=== PATIENT | male | born 1940 | race Caucasian/White ===

== ENCOUNTER 2022-04-16 09:01 | Emergency (ER) | payer MEDICARE, BC, SELFPAY ==
[2022-04-16 09:15] VITALS: BP 145/73; PULSE 60; O2SAT 96
[2022-04-16 09:17] VITALS: BP 145/73; PULSE 57; RESP 18; TEMP 36.6; O2SAT 97; BMI 248.7
[2022-04-16 09:30] VITALS: BP 132/102; PULSE 58; RESP 17; O2SAT 95
[2022-04-16 10:00] VITALS: BP 115/62; PULSE 57; RESP 20; O2SAT 97
--- NOTE | 2022-04-16 10:17 | CRLHL7_ITS ---
For Patients: As a result of the Century Cures Act, medical imaging exams and procedure reports are released immediately into your electronic medical record. You may view this report before your referring provider. If you have questions, please contact your health care provider. Indication: Vertigo Technique: CT of the head without contrast. Coronal and sagittal reformats. Bone and soft tissue windows. Comparison: No prior studies available for comparison at this institution. Findings: No acute intracranial hemorrhage or extra-axial collection. No evidence of acute cortical infarction. No mass effect or midline shift. Normal cerebral volume. The ventricles are normal in size, shape and contour for age. There is normal lewis and white matter differentiation. The orbital contents are normal. No calvarial fractures. No lytic or sclerotic osseous lesions within the calvarium or skull base. Scalp and other imaged soft tissue structures are normal. Mastoid air cells are clear. Paranasal sinuses are well aerated. Impression: No acute intracranial abnormality. Please note that all CT scans at this facility use dose modulation, iterative reconstruction, and/or weight-based dosing when appropriate to reduce radiation dose to as low as reasonably achievable. Dictated by Sukhwinder Michel MD @ 04/16/2022 10:46:09 AM (Electronically Signed)
--- NOTE | 2022-04-16 10:20 | ED.DIZZY ---
HPI - Dizziness General Chief Complaint: Dizziness/Vertigo Stated Complaint: DIZZY,BLURRY VISION,HEADACHE Time Seen by Provider: 04/16/22 10:09 History of Present Illness HPI Narrative: This 81-year-old male reports dizziness that began last night and again this morning. He clarifies it to state that he feels off balance and has some vertigo symptoms. He does have a mild headache also. He does not report any nausea or vomiting. He has not had any speech change or weakness. He states that his symptoms are completely gone when remaining still but reproducible with movement or when upright and walking. Related Data Home Medications Medication Instructions Recorded Confirmed latanoprost 0.005 % eye drops drp 04/16/22 levothyroxine 137 mcg tablet mcg 04/16/22 losartan 100 tab 04/16/22 mg-hydrochlorothiazide 25 mg tablet propranolol 20 mg tablet mg 04/16/22 simvastatin 40 mg tablet mg 04/16/22 topiramate 50 mg tablet mg 04/16/22 Previous Rx's Medication Instructions Recorded meclizine 25 mg tablet 25 mg PO QID #20 tabs 04/16/22 Allergies Allergy/AdvReac Type Severity Reaction Status Date / Time No Known Drug Allergies Allergy Verified 04/16/22 09:17 Review of Systems Status of ROS: Reports: 10 or more systems reviewed and unremarkable except as noted in History and below Narrative: Constitutional: No fevers, no weight gain or loss. Eyes: No discharge. No vision changes. HENT: No congestion, no sore throat, no ear pain. Cardiovascular: No chest pain, no palpitations. Respiratory: No shortness of breath, no wheezes, no cough. Gastrointestinal: No abdominal pain, no vomiting, no diarrhea. Genitourinary: No dysuria, no hematuria. Musculoskeletal: Normal range of motion. Skin: No rashes, no pruritis. Neurological: Vertigo symptoms as described above. No weakness. No speech change. He does report some tingling in his fingers. Endo/Heme/Allergies: No bruising or bleeding. No polydipsia. Pysch: no suicidality, no anxiety, no insomnia. All other systems reviewed and are negative. PFSH PFSH Social History Smoking Status: Former smoker Do you use any of these nicotine containing products: None Second hand tobacco smoke exposure: No How often do you have a drink containing alcohol: 4 or more times a week How many standard drinks containing alcohol do you have on a typical day: 1 or 2 How often do you have six or more drinks on one occasion: Never AUDIT-C Alcohol total score: 4 Non-prescribed substance use: denies use Exam Narrative: Exam Narrative: Constitutional: Well-developed, well-nourished, no acute distress. HEENT: Normocephalic, atraumatic. Neck: Normal range of motion. Nontender. Supple. Heart: Regular. No murmurs. Normal rate. Intact distal pulses. Lungs: Clear to auscultation. No chest discomfort. No wheezes, rhonchi, or rales. Abdomen: Normal bowel sounds. Nontender. No rebound tenderness. Genitalia: Deferred. Back: No midline tenderness. Normal range of motion. Extremities: Normal range of motion. No injury. Skin: Intact. No rash. Warm. No erythema or pallor. Neurologic: No weakness. Alert and oriented. No facial asymmetry. [employer] strength is equal bilaterally. Ocldge-el-zlks is normal. Heel to deluna is normal. No pronator drift. Psychiatric: No suicidality. No anxiety or depression. No insomnia. Nursing notes and vitals signs are reviewed. Const: Vital Signs, click to edit/add: Vital Signs - 24 hr 04/16/22 09:17 Temperature 97.8 F Pulse Rate [Right Pulse Oximeter] 57 L Respiratory Rate 18 Blood Pressure [Ri ght Upper Arm] 145/73 H Pulse Oximetry 97 Oxygen Delivery Me thod Room Air Course Vital Signs Vital signs: Initial Vital Signs Temperature 97.8 F 04/16/22 09:17 Temperature Source Temporal Artery Scan 04/16/22 09:17 Pulse Rate 57 L 04/16/22 09:17 Respiratory Rate 18 04/16/22 09:17 Blood Pressure 145/73 H 04/16/22 09:17 Blood Pressure Mean 97 04/16/22 09:17 Pulse Oximetry 97 04/16/22 09:17 Oxygen Delivery Method 04/16/22 09:17 Vital Signs Temperature 97.8 F 04/16/22 09:17 Pulse Rate 57 L 04/16/22 09:17 Respiratory Rate 18 04/16/22 09:17 Blood Pressure 145/73 H 04/16/22 09:17 Pulse Oximetry 97 04/16/22 09:17 Oxygen Delivery Method 04/16/22 09:17 Temperature 97.8 F 04/16/22 09:17 Pulse Rate 57 L 04/16/22 09:17 Respiratory Rate 18 04/16/22 09:17 Blood Pressure 145/73 H 04/16/22 09:17 Pulse Oximetry 97 04/16/22 09:17 Oxygen Delivery Method 04/16/22 09:17 MDM - Dizziness MDM Narrative Medical decision making narrative: This 81-year-old male comes in reporting symptoms of vertigo that came on rather suddenly last night and again this morning. His symptoms are absent when remaining still but reproduced somewhat now with movement. His neurologic exam is completely normal. Given his age I did do a workup including CT imaging of his head and lab results. These all returned with normal findings. This is not a central process for his vertigo. The patient was able to get up and ambulate. He did receive a tablet of meclizine. Lab Data Labs: Lab Results 04/16/22 04/16/22 Range/Units 09:30 09:30 WBC 7.42 (4.50-11.00) K/uL RBC 5.36 (4.30-5.90) m/uL Hgb 15.6 (13.5-17.5) gm/dL Hct 45.8 (37.0-53.0) % MCV 85 (80-100) fL MCH 29 (26-34) pg MCHC 34 (32-36) gm/dL RDW Coeff of Parveen 13.1 (11.5-15.5) % Plt Count 231 (140-440) K/uL Neut % (Auto) 73.8 H (42.0-72.0) % Lymph % (Auto) 15.9 L (20-44) % [place] % (Auto) 8.4 (0.0-11.0) % Eos % (Auto) 1.2 (0.0-7.0) % Baso % (Auto) 0.4 (0.0-3.0) % Neut # (Auto) 5.50 (1.7-7.0) K/uL Lymph # (Auto) 1.20 (0.90-2.90) K/uL [place] # (Auto) 0.60 (0.00-0.90) K/UL Eos # (Auto) 0.09 (0.00-0.50) K/uL Baso # (Auto) 0.03 (0.00-0.30) K/uL Abs Immat Gran (auto) 0.02 (0.00-0.30) K/uL Sodium 141 (135-149) mmol/L Potassium 3.7 (3.6-5.1) mmol/L Chloride 108 (96-114) mmol/L Carbon Dioxide 25 (20-32) mmol/L BUN 24 (7-30) mg/dL Creatinine 1.2 (0.5-1.5) mg/dL Estimated Creat Clear 59.66 Estimated GFR 62 ml/min Glucose 99 (60-115) mg/dL Calcium 9.1 (8.4-10.6) mg/dL Imaging Data CT scan - head: Radiologist's impression: No acute intracranial abnormality. ECG Data Attestation: I personally reviewed and interpreted this ECG as follows: Interpretation: Normal sinus rhythm. Rate is 60 beats per minute. There are no ST or T-wave abnormalities. Discharge Plan Discharge Clinical Impression: Acute vestibular neuronitis Patient Disposition: Home, Self-Care Condition: Improved Instructions: Vertigo (ED) Additional Instructions: Take medication as needed and indicated. Follow up with MD or return if worsening symptoms happen. Prescriptions: New meclizine 25 mg tablet 25 mg PO QID Qty: 20 0RF No Action latanoprost 0.005 % drops Label Comments: INSTILL 1 DROP IN BOTH EYES EVERY EVENING levothyroxine 137 mcg tablet Label Comments: TAKE 1 TABLET BY MOUTH EVERY DAY simvastatin 40 mg tablet Label Comments: TAKE 1 TABLET BY MOUTH EVERY NIGHT AT BEDTIME losartan-hydrochlorothiazide 100-25 mg tablet Label Comments: TAKE 1 TABLET BY MOUTH EVERY MORNING propranolol 20 mg tablet topiramate 50 mg tablet Follow Up/Referrals: Provider,Not a Local [Primary Care Provider] - Stand Alone Forms: [facility] Info Instructions
[2022-04-16] MEDS: MECLIZINE HCL 25 MG TABLET PO (10:27)
[2022-04-16 10:34] LABS: Basophils Absolute Auto 0.03 K/uL (0.00-0.30); Basophils Percent Auto 0.4 % (0.0-3.0); Eosinophils Absolute Auto 0.09 K/uL (0.00-0.50); Eosinophils Percent Auto 1.2 % (0.0-7.0); Hematocrit 45.8 % (37.0-53.0); Hemoglobin* 15.6 gm/dL (13.5-17.5); Immature Granulocytes Abs Auto 0.02 K/uL (0.00-0.30); Lymphocytes Percent Auto 15.9 % (20-44); Mean Corpuscular HGB Conc 34 gm/dL (32-36); Mean Corpuscular Hemoglobin 29 pg (26-34); Mean Corpuscular Volume 85 fL (80-100); Monocytes Percent Auto 8.4 % (0.0-11.0); Neutrophils Percent Auto 73.8 % (42.0-72.0); Platelet Count* 231 K/uL (140-440); RDW Coefficient of Variation % 13.1 % (11.5-15.5); Red Blood Count 5.36 m/uL (4.30-5.90); White Blood Count* 7.42 K/uL (4.50-11.00)
[2022-04-16 10:36] LABS: Slide Review Reflex No
[2022-04-16 10:43] LABS: Chloride* 108 mmol/L (96-114); Potassium* 3.7 mmol/L (3.6-5.1); Sodium* 141 mmol/L (135-149)
[2022-04-16 10:45] LABS: Creatinine* 1.2 mg/dL (0.5-1.5); Est. Creatinine Clearance* 59.66; Estimated Glomerular Filt Rate 62 ml/min
[2022-04-16 10:46] LABS: Blood Urea Nitrogen* 24 mg/dL (7-30); Calcium* 9.1 mg/dL (8.4-10.6); Carbon Dioxide* 25 mmol/L (20-32); Glucose* 99 mg/dL (60-115)
== END 2022-04-16 11:47 | disposition home or self-care (01) ==
PROVIDERS: Emergency Provider Emergency Medicine Emergency Medical Services
DX: H81.20 Vestibular neuronitis, unspecified ear (principal)
CPT/HCPCS: 36415; 70450; 80048; 85025; 93005; 99284; A9270

== ENCOUNTER 2022-05-11 09:37 | Outpatient (CLI) | payer MEDICARE, BC, SELFPAY | END 2022-05-11 09:38 | disposition home or self-care (01) | PROVIDERS: Physician Assistant; Visit Provider Internal Medicine | DX: C61 Malignant neoplasm of prostate (principal) | CPT/HCPCS: 36415; 84153 ==

== ENCOUNTER 2023-06-05 09:36 | Outpatient (CLI) | payer MEDICARE, BC, SELFPAY ==
[2023-06-05 11:07] LABS: PSA Diagnostic* 0.25 ng/mL (0.10-4.00)
== END 2023-06-05 09:37 | disposition home or self-care (01) ==
PROVIDERS: Visit Provider Internal Medicine
DX: C61 Malignant neoplasm of prostate (principal)
CPT/HCPCS: 36415; 84153

== ENCOUNTER 2024-07-17 20:40 | Observation (INO) | payer MEDICARE, BC, SELFPAY ==
[2024-07-17] VITALS (7 sets, daily range): BP systolic 111–178; BP diastolic 73–98; PULSE 60–73; RESP 18; TEMP 37.1; O2SAT 96–98; BMI 24.3
--- NOTE | 2024-07-17 21:00 | ED_ITS ---
HPI - General Adult General Date Seen: 07/17/24 Chief complaint: GI Bleed Stated complaint: blood in stool Time Seen by Provider: 07/17/24 20:57 History of Present Illness HPI narrative: 83-year-old gentleman with a history high cholesterol, hypothyroidism, hypert ension, atrial fibrillation and is on warfarin, prostate cancer, essential tremor, lumbar degenerative disc disease, presenting to the ER today with 3 episodes of bright red blood per rectum. The 1st episode happened around 6:00 p.m. tonight when he notice bright red blood in the toilet. About 20 minutes after that he had another stool with more blood. We do not have any old labs from here in the [facility] medical record. He did have an INR in the [facility] system on 06/03/24 that was 3.0 CBC 06/01/2024 showed a white count of 7.5, hemoglobin 13.6, platelet count 186. He had been hospitalized in May with symptoms of fever, headache and lab workup showed creatinine of 1.4 (up from baseline around 1.1). COVID negative. Chest x-ray normal. Head CT negative. Treated in the hospital with IV fluids for acute kidney injury. Creatinine came back down to 1.08 on 06/03. He has back been having some trouble over the past couple months with labile INR. Apparently had been low a few months ago and was a bit high at 3.0 few weeks ago. He is due for an INR check in the few days. He has not noted any recent unusual bleeding, bruising, or other symptoms. He is not feeling any palpitations or shortness of breath or chest pain or other symptoms of AFib. He has otherwise been healthy and well. He has not had any recent abdominal pain. No recent constipation or hard stools. No diarrhea. Urination has been normal. No abdominal pain today or fever. At about 6:00 p.m. tonight he felt the urge to have a bowel movements went to the bathroom. He was not really able to defecate any stool but did pass bright red blood per rectum. He was not able to quantify how much blood be does say that there was some blood in the toilet water in the toilet bowl and also some blood on the toilet paper. It sounds like this would more a equate 2 tbsp of blood, not cups our gowns. He did not have any rectal pain with passage of the blood. About 20 minutes later he passed another episode of bright red blood per rectum and finally told his about it. They came here to the ER. On the way here he did pass a little bit more bright red blood which was leaking from his rectum but was not fully due to defecation. He is not feeling lightheaded or weak or dizzy. He had a colonoscopy a few years ago that showed a few polyps that were removed. No other concerning findings. He has had radiation to his prostate some years ago but has never been diagnosed with radiation colitis. No history of inflammatory bowel disease. No recent travel or suspicious food intake. Related Data Home Medications ?Medication ?Instructions ?Recorded ?Confirmed latanoprost 0.005 % eye drops drp 04/16/22 levothyroxine 137 mcg tablet mcg 04/16/22 losartan 100 tab 04/16/22 mg-hydrochlorothiazide 25 mg tablet propranolol 20 mg tablet mg 04/16/22 simvastatin 40 mg tablet mg 04/16/22 topiramate 50 mg tablet mg 04/16/22 warfarin 2.5 mg tablet mg PO 07/17/24 Previous Rx's ?Medication ?Instructions ?Recorded meclizine 25 mg tablet 25 mg PO QID #20 tabs 04/16/22 Allergies Allergy/AdvReac Type Severity Reaction Status Date / Time lisinopril AdvReac Verified 07/17/24 20:52 [facility] Medical History Essential tremor ?G25.0 - Essential tremor (ICD-10) History of CVA (cerebrovascular accident) ?Z86.73 - Personal history of transient ischemic attack (TIA), and cerebral infarction without residual deficits (ICD-10) Right upper lobe pulmonary nodule ?R91.1 - Solitary pulmonary nodule (ICD-10) Lumbar radiculopathy ?M54.16 - Radiculopathy, lumbar region (ICD-10) Prostate cancer ?C61 - Malignant neoplasm of prostate (ICD-10) Glaucoma ?H40.9 - Unspecified glaucoma (ICD-10) Hyperkalemia ?E87.5 - Hyperkalemia (ICD-10) Hypothyroidism ?E03.9 - Hypothyroidism, unspecified (ICD-10) Hyperlipidemia ?E78.5 - Hyperlipidemia, unspecified (ICD-10) Renal infarct ?N28.0 - Ischemia and infarction of kidney (ICD-10) Atrial fibrillation ?I48.91 - Unspecified atrial fibrillation (ICD-10) Hypertension ?I10 - Essential (primary) hypertension (ICD-10) Social History What is your current living situation?: I presently have a place to live Problems where you live: no known problems Problems where you live details: n/a In the past 12 months, utilities in danger of being shut off: no In past 12 months, lack of transportation kept you from medical appts, meetings, work, or getting things needed for daily living: no In the past 12 mos, have been you worried that your food would run out before you had money to buy more?: never true In the past 12 mos, the food you bought just didn't last and you didn't have money to buy more?: never true Highest level of school completed/degree received: high school graduate Smoking Status: Former smoker Do you use any of these nicotine containing products: None Second hand tobacco smoke exposure: No How often do you have six or more drinks on one occasion: Never AUDIT-C Alcohol total score: 0 Non-prescribed substance use: denies use How often does anyone, including family, friends and others, physically hurt you : never How often does anyone, including family, friends and others, insult or talk down to you: never How often does anyone, including family, friends and others, threaten you with harm: never How often does anyone, including family, friends and others, scream or curse at you: never Exam Narrative: Exam Narrative: Constitutional: Appears well-developed and well-nourished. Alert. Conversant. Non toxic. HENT: Head: Atraumatic. Nose: Nose normal. Mouth/Throat: Oral mucosa is clear and moist. no trismus. Pharynx normal. Tonsils symmetric. No tonsillar enlargement, erythema, or exudate. Eyes: Conjunctivae normal. EOM normal. Pupils equal, round, and reactive to light. No scleral icterus. Neck: Normal range of motion. Neck supple. No tracheal deviation present. Cardiovascular: Normal rate, regular rhythm. No gallop. No friction rub. No murmur heard. Symmetric radial artery pulses Pulmonary/Chest: Effort normal. No stridor. No respiratory distress. No wheezes. No rales. No rhonchi . No tenderness. Abdominal: Soft. Bowel sounds normal. No distension. No mass. No tenderness. No rebound. No guarding. Rectal: He does have a small skin tag and a small external hemorrhoid without any signs of active bleeding that from those sites. No rectal fissures. Normal rectal tone. No palpable rectal masses. Musculoskeletal: RUE: Normal range of motion. No tenderness. No deformity LUE: Normal range of motion. No tenderness. No deformity RLE: Normal range of motion. No edema. No tenderness. No deformity LLE: Normal range of motion. No edema. No tenderness. No deformity Neurological: Alert and oriented to person, place, and time. Normal strength. CN II-VII intact. No sensory deficit. GCS eye subscore is 4. GCS verbal subscore is 5. GCS motor subscore is 6. Normal coordination Skin: Skin is warm and dry. No rash noted. No pallor. Normal capillary refill. Psychiatric: Normal mood. Normal affect. Const: Vital Signs, click to edit/add: Vital Signs - 24 hr 07/17/24 20:49 07/17/24 22:43 07/17/24 22:44 Temperature 98.8 F Pulse Rate 62 Pulse Rate [Pulse Oximeter] 73 Respiratory Rate 18 Blood Pressure 142/73 H Blood Pressure [Ri ght Upper Arm] 178/98 H Pulse Oximetry 98 97 97 Oxygen Delivery Me thod Room Air 07/17/24 22:44 07/17/24 22:45 07/17/24 23:00 Temperature Pulse Rate 61 61 60 Pulse Rate [Pulse Oximeter] Respiratory Rate Blood Pressure Blood Pressure [Ri ght Upper Arm] Pulse Oximetry 97 96 98 Oxygen Delivery Me thod 07/17/24 23:02 07/17/24 23:15 Temperature Pulse Rate 62 62 Pulse Rate [Pulse Oximeter] Respiratory Rate 18 Blood Pressure 111/82 Blood Pressure [Ri ght Upper Arm] Pulse Oximetry 97 96 Oxygen Delivery Me thod Room Air Course Vital Signs Vital signs: Initial Vital Signs Temperature 98.8 F 07/17/24 20:49 Temperature Source Temporal Artery Scan 07/17/24 20:49 Pulse Rate 73 07/17/24 20:49 Respiratory Rate 18 07/17/24 20:49 Blood Pressure 178/98 H 07/17/24 20:49 Blood Pressure Mean 124 H 07/17/24 20:49 Blood Pressure Position Sitting 07/17/24 20:49 Pulse Oximetry 98 07/17/24 20:49 Oxygen Delivery Method Room Air 07/17/24 20:49 Vital Signs Temperature 98.8 F 07/17/24 20:49 Pulse Rate 73 07/17/24 20:49 Respiratory Rate 18 07/17/24 20:49 Blood Pressure 178/98 H 07/17/24 20:49 Pulse Oximetry 98 07/17/24 20:49 Oxygen Delivery Method Room Air 07/17/24 20:49 Temperature 98.7 F 07/18/24 00:40 Pulse Rate 61 07/18/24 00:40 Respiratory Rate 16 07/18/24 00:40 Blood Pressure 149/79 H 07/18/24 00:40 Pulse Oximetry 96 07/18/24 00:40 Oxygen Delivery Method Room Air 07/18/24 00:40 Medications Administered Medications: Generic Name Dose Route Start Last Admin Trade Name Zain PRN Reason Stop Dose Admin Propranolol HCl 20 mg 07/17/24 23:10 07/18/24 00:15 Propranolol 20 Mg Tablet PO 10 mg HS BLAKE Administration Simvastatin 40 mg 07/17/24 23:10 07/18/24 00:15 Simvastatin 40 Mg Tablet PO 40 mg HS BLAKE Administration Topiramate 50 mg 07/17/24 23:10 07/18/24 00:14 Topiramate 50 Mg Tablet PO 50 mg HS BLAKE Administration Medical Decision Making [facility] Narrative Medical decision making narrative: Very pleasant but medically complex 83-year-old gentleman on warfarin for stroke prophylaxis from AFib presenting to the ER today today with bright red blood per rectum that began a couple of hours prior to arrival. He has had 3 episodes. He is difficult for him to quantify how much blood he lost but it sounds like not a substantially large amount yet. He is not feeling lightheaded. He is hemodynamically stable. Clinical exam does not show any evidence for an obvious external source of bleeding such as a bleeding hemorrhoid or fissure. Differential would include bleeding from diverticula, AVM, colon cancer, colitis, among others. CT scan shows no evidence for any active colitis to suggest radiation colitis, infection, ischemia. Laboratory workup is generally reassuring. Hemoglobins starting out of 14.7. INR is actually subtherapeutic at 1.57. At this point there is no clinical evidence that he is actively deteriorating or will require massive transfusion or ICU. However given his age, anticoagulation status, I think that hospitalization is indicated. Patient is reluctant but ultimately agreeable. is agreeable. Discussed with our hospitalist, Sara, who graciously agrees to admit for observation overnight. Lab Data Labs: Lab Results 07/17/24 Range/Units 21:37 WBC 7.65 (4.50-11.00) K/uL RBC 5.16 (4.30-5.90) m/uL Hgb 14.6 (13.5-17.5) gm/dL Hct 44.6 (37.0-53.0) % MCV 86 (80-100) fL MCH 28 (26-34) pg MCHC 33 (32-36) gm/dL RDW Coeff of Parveen 14.9 (11.5-15.5) % Plt Count 193 (140-440) K/uL Neut % (Auto) 72.7 H (42.0-72.0) % Lymph % (Auto) 16.9 L (20-44) % [place] % (Auto) 8.5 (0.0-11.0) % Eos % (Auto) 1.2 (0.0-7.0) % Baso % (Auto) 0.4 (0.0-3.0) % Neut # (Auto) 5.60 (1.7-7.0) K/uL Lymph # (Auto) 1.30 (0.90-2.90) K/uL [place] # (Auto) 0.70 (0.00-0.90) K/UL Eos # (Auto) 0.09 (0.00-0.50) K/uL Baso # (Auto) 0.03 (0.00-0.30) K/uL Abs Immat Gran (auto) 0.02 (0.00-0.30) K/uL Imm/Tot Granulo (auto) 0.3 % INR 1.57 H (0.91-1.10) Sodium 139 (135-149) mmol/L Potassium 4.0 (3.6-5.1) mmol/L Chloride 108 (96-114) mmol/L Carbon Dioxide 22 (20-32) mmol/L Anion Gap 9 (7-15) mEq/L BUN 23 (7-30) mg/dL Creatinine 1.4 (0.5-1.5) mg/dL Estimated Creat Clear 50.81 Estimated GFR 50 ml/min Glucose 95 (60-115) mg/dL Lactate 0.6 (0.5-1.9) mmol/L Calcium 9.3 (8.4-10.6) mg/dL Blood Type O Negative Antibody Screen NEGATIVE Imaging Data CT scan - abdomen: Attestation: I have reviewed the pertinent imaging results. Radiologist's impression: IMPRESSION: 1. No acute findings within the abdomen pelvis. 2. Diverticulosis without evidence for diverticulitis. 3. Indeterminate 2 cm hypodense lesion in segment II of the liver. Consider outpatient liver MRI for further characterization. 4. Indeterminate 1 cm right adrenal nodule. Recommend follow-up adrenal CT in 12 months. 5. Several chronic findings, as above. Discharge Plan Discharge Clinical Impression: Acute lower gastrointestinal bleeding, Lesion of liver Patient Disposition: Admitted As Observation
--- NOTE | 2024-07-17 21:27 | CRLHL7_ITS ---
For Patients: As a result of the Century Cures Act, medical imaging exams and procedure reports are released immediately into your electronic medical record. You may view this report before your referring provider. If you have questions, please contact your health care provider. INDICATION: Lower GI bleed, blood in stool. TECHNIQUE: CT abdomen and pelvis acquired with 100 cc of Omnipaque 350 IV contrast. COMPARISON: None. FINDINGS: Lower chest: Bibasilar scarring versus atelectasis and paraseptal emphysema Liver: Lobulated indeterminate 2 cm hypodense lesion adjacent to the falciform ligament within segment II of the left hepatic lobe. Gallbladder and bile ducts: Unremarkable. No stones or inflammation. No biliary dilatation. Pancreas: Unremarkable. No mass or inflammation. Spleen: Unremarkable. Normal in size. No masses. Adrenal glands: Indeterminate 1.1 cm right adrenal nodule. Kidneys: Atrophic left kidney with multifocal renal cortical scarring. Parapelvic cysts bilaterally. No hydronephrosis or suspicious mass. GI tract: Diverticulosis without pericolonic inflammation. No obstruction. Normal appendix. Vasculature: Normal caliber abdominal aorta with moderate to severe atherosclerotic calcification. Mesenteric arteries are patent. Lymph nodes: No lymphadenopathy. Peritoneum/Abdominal Wall: Small bilateral fat-containing inguinal hernias, left greater than right. No free air or significant free fluid. Pelvis: Prostatomegaly. Bones: Right total hip arthroplasty. Otherwise, unremarkable for age. IMPRESSION: 1. No acute findings within the abdomen pelvis. 2. Diverticulosis without evidence for diverticulitis. 3. Indeterminate 2 cm hypodense lesion in segment II of the liver. Consider outpatient liver MRI for further characterization. 4. Indeterminate 1 cm right adrenal nodule. Recommend follow-up adrenal CT in 12 months. 5. Several chronic findings, as above. Please note that all CT scans at this facility use dose modulation, iterative reconstruction, and/or weight-based dosing when appropriate to reduce radiation dose to as low as reasonably achievable. Dictated by Santi Olea MD @ 07/17/2024 11:06:19 PM (Electronically Signed)
[2024-07-17 21:42] LABS: Lactate* 0.6 mmol/L (0.5-1.9)
[2024-07-17 21:50] LABS: Basophils Absolute Auto 0.03 K/uL (0.00-0.30); Basophils Percent Auto 0.4 % (0.0-3.0); Eosinophils Absolute Auto 0.09 K/uL (0.00-0.50); Eosinophils Percent Auto 1.2 % (0.0-7.0); Hematocrit 44.6 % (37.0-53.0); Hemoglobin* 14.6 gm/dL (13.5-17.5); Immature Granulocytes Abs Auto 0.02 K/uL (0.00-0.30); Immature Granulocytes Pct Auto 0.3 %; Lymphocytes Percent Auto 16.9 % (20-44); Mean Corpuscular HGB Conc 33 gm/dL (32-36); Mean Corpuscular Hemoglobin 28 pg (26-34); Mean Corpuscular Volume 86 fL (80-100); Monocytes Percent Auto 8.5 % (0.0-11.0); Neutrophils Percent Auto 72.7 % (42.0-72.0); Platelet Count* 193 K/uL (140-440); RDW Coefficient of Variation % 14.9 % (11.5-15.5); Red Blood Count 5.16 m/uL (4.30-5.90); White Blood Count* 7.65 K/uL (4.50-11.00)
[2024-07-17 21:51] LABS: Slide Review Reflex No
[2024-07-17 22:03] LABS: Chloride* 108 mmol/L (96-114); Sodium* 139 mmol/L (135-149)
[2024-07-17 22:04] LABS: INR 1.57 (0.91-1.10); Prothrombin Time 19.8 Seconds
[2024-07-17 22:06] LABS: Anion Gap 9 mEq/L (7-15); Blood Urea Nitrogen* 23 mg/dL (7-30); Calcium* 9.3 mg/dL (8.4-10.6); Carbon Dioxide* 22 mmol/L (20-32); Creatinine* 1.4 mg/dL (0.5-1.5); Est. Creatinine Clearance* 50.81; Estimated Glomerular Filt Rate 50 ml/min; Glucose* 95 mg/dL (60-115)
--- NOTE | 2024-07-17 23:16 | PM.IMHP1 ---
Hospitalist- H&P: HPI History of Present Illness Date Seen: 07/17/24 Chief complaint: blood in stool Narrative: dAolph Hester is a 83 year old male past medical history significant for hypertension, hyperlipidemia, hypothyroidism, recent diagnosis atrial fibrillation, started on warfarin, history of prostate cancer treated with radiation therapy, glaucoma, lumbar radiculopathy, essential tremor is admitted to the medical floor from the ED for further monitoring and management GI bleed. Patient is seen with , Bita, at bedside. Drove from [place] with concern of bright red blood from rectum x2 tonight. Tells me he thought he was having a bowel movement but noticed bright red blood, more than just drops, turning the toilet bowl bloody. No feces was passed. In the ED, had very little bleed, more so on the toilet paper in this 3rd episode. Denies abdominal pain. Denies recent nausea vomiting or diarrhea. Denies headache or dizziness at all today. Denies chest pain or shortness of breath. Currently on warfarin for recent diagnosis atrial fibrillation. Has not been able to afford DOAC. Last colonoscopy approximately 2 years ago at which time he had polyps removed. Nonsmoker. Quit drinking since starting warfarin. Lives with his in their own home. Full code. Review of Systems Narrative: REVIEW OF SYSTEMS: Complete review of systems performed and negative unless otherwise stated in HPI or below. [facility] Medical History Essential tremor ?G25.0 - Essential tremor (ICD-10) History of CVA (cerebrovascular accident) ?Z86.73 - Personal history of transient ischemic attack (TIA), and cerebral infarction without residual deficits (ICD-10) Right upper lobe pulmonary nodule ?R91.1 - Solitary pulmonary nodule (ICD-10) Lumbar radiculopathy ?M54.16 - Radiculopathy, lumbar region (ICD-10) Prostate cancer ?C61 - Malignant neoplasm of prostate (ICD-10) Glaucoma ?H40.9 - Unspecified glaucoma (ICD-10) Hyperkalemia ?E87.5 - Hyperkalemia (ICD-10) Hypothyroidism ?E03.9 - Hypothyroidism, unspecified (ICD-10) Hyperlipidemia ?E78.5 - Hyperlipidemia, unspecified (ICD-10) Renal infarct ?N28.0 - Ischemia and infarction of kidney (ICD-10) Atrial fibrillation ?I48.91 - Unspecified atrial fibrillation (ICD-10) Hypertension ?I10 - Essential (primary) hypertension (ICD-10) Social History Smoking Status: Former smoker Do you use any of these nicotine containing products: None Second hand tobacco smoke exposure: No How often do you have a drink containing alcohol: 4 or more times a week How many standard drinks containing alcohol do you have on a typical day: 1 or 2 How often do you have six or more drinks on one occasion: Never AUDIT-C Alcohol total score: 4 Non-prescribed substance use: denies use Meds Home Medications and Allergies Home Medications ?Medication ?Instructions ?Recorded ?Confirmed ?Type latanoprost 0.005 % eye drops drp 04/16/22 History levothyroxine 137 mcg tablet mcg 04/16/22 History losartan 100 tab 04/16/22 History mg-hydrochlorothiazide 25 mg tablet propranolol 20 mg tablet mg 04/16/22 History simvastatin 40 mg tablet mg 04/16/22 History topiramate 50 mg tablet mg 04/16/22 History warfarin 2.5 mg tablet mg PO 07/17/24 History Allergies Allergy/AdvReac Type Severity Reaction Status Date / Time lisinopril AdvReac Verified 07/17/24 20:52 Exam Narrative: Exam Narrative: PHYSICAL EXAM General: Pleasant, conversant, NAD HEENT: Normocephalic, atraumatic, sclera white, EOMI, oral mucosa moist Cardiovascular: RRR, S1S2. No pitting edema Pulmonary: CTA bilaterally without rhonchi, rales, expiratory wheezes. No dyspnea Abdominal: Soft, nondistended, NTTP Neurological: Alert, answering questions appropriately, cranial nerves intact, no focal findings Extremities: No gross joint deformity or swelling. AROMI. Neurovascularly intact Skin: Warm, dry. Const: Vital Signs, click to edit/add: Vital Signs - 24 hr 07/17/24 20:49 07/17/24 22:44 Temperature 98.8 F Pulse Rate [Pulse Oximeter] 73 Respiratory Rate 18 Blood Pressure [Ri ght Upper Arm] 178/98 H Pulse Oximetry 98 97 Oxygen Delivery Me thod Room Air Hospitalist - H&P: Result Labs Labs: Short CBC 07/17/24 Range/Units 21:37 WBC 7.65 (4.50-11.00) K/uL Hgb 14.6 (13.5-17.5) gm/dL Hct 44.6 (37.0-53.0) % Plt Count 193 (140-440) K/uL [facility] 07/17/24 21:37 Sodium 139 Potassium 4.0 Chloride 108 Carbon Dioxide 22 BUN 23 Creatinine 1.4 Glucose [address] abdomen pelvis: Attestation: I have reviewed the pertinent imaging results. Radiologist's impression: Lower chest: Bibasilar scarring versus atelectasis and paraseptal emphysema Liver: Lobulated indeterminate 2 cm hypodense lesion adjacent to the falciform ligament within segment II of the left hepatic lobe. Gallbladder and bile ducts: Unremarkable. No stones or inflammation. No biliary dilatation. Pancreas: Unremarkable. No mass or inflammation. Spleen: Unremarkable. Normal in size. No masses. Adrenal glands: Indeterminate 1.1 cm right adrenal nodule. Kidneys: Atrophic left kidney with multifocal renal cortical scarring. Parapelvic cysts bilaterally. No hydronephrosis or suspicious mass. GI tract: Diverticulosis without pericolonic inflammation. No obstruction. Normal appendix. Vasculature: Normal caliber abdominal aorta with moderate to severe atherosclerotic calcification. Mesenteric arteries are patent. Lymph nodes: No lymphadenopathy. Peritoneum/Abdominal Wall: Small bilateral fat-containing inguinal hernias, left greater than right. No free air or significant free fluid. Pelvis: Prostatomegaly. Bones: Right total hip arthroplasty. Otherwise, unremarkable for age. IMPRESSION: 1. No acute findings within the abdomen pelvis. 2. Diverticulosis without evidence for diverticulitis. 3. Indeterminate 2 cm hypodense lesion in segment II of the liver. Consider outpatient liver MRI for further characterization. 4. Indeterminate 1 cm right adrenal nodule. Recommend follow-up adrenal CT in 12 months. 5. Several chronic findings, as above. 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 Recheck in am -hold warfarin, SCDs for prophylaxis -telemetry -followed by [facility], last outpatient visit 07/05/2024 (echocardiogram 03/15/2024, recent 24 hour Holter monitor, pending stress test) Status: Acute (3) Hypertension: Problem comment: -continue losartan Status: Acute (4) Hyperlipidemia: Problem comment: -continue statin Status: Acute (5) Hypothyroidism: Problem comment: -continue levothyroxine Status: Acute (6) Prostate cancer: Problem comment: -diagnosed November 2014 -Radiotherapy to the prostate and proximal seminal vesicles initiated on April 20, 2020; completed on May 27, 2020 -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 [facility] neurologist was contacted. NIHSS was 1 (sensory). CT without acute finding. CTA of the head and neck was unremarkable. He was recently discovered to have atrial fibrillation and started on Warfarin. INR was 1.4 on arrival. Etiology was thought to be cardioembolic in the setting of recent diagnosis of atrial fibrillation with subtherapeutic INR. He was readmitted to [facility] from 03/16 to 03/19/2024 with renal infarct. He was discharged on Warfarin. DOAC was cost prohibitive. Status: Acute (8) Liver lesion: Problem comment: -incidental finding. Indeterminate 2 cm hypodense lesion in segment II of the liver. Consider outpatient liver MRI for further characterization Status: Acute (9) Adrenal nodule: Problem comment: -incidental finding. Indeterminate 1 cm right adrenal nodule. Recommend follow-up adrenal CT in 12 months Status: Acute Total Time Spent Total Time Spent: Total time spent caring for the patient today was 75 minutes. This includes time spent for the visit reviewing the chart, time spent during the visit, time spent after the visit and documentation and planning in coordination of care.
[2024-07-18] MEDS: TOPIRAMATE 50 MG TABLET PO (00:14)
[2024-07-18] MEDS: SIMVASTATIN 40 MG TABLET PO (00:15)
[2024-07-18] MEDS: PROPRANOLOL 20 MG TABLET PO (00:15)
[2024-07-18 00:40] VITALS: BP 149/79; PULSE 61; RESP 16; TEMP 37.1; O2SAT 96; BMI 23.9
[2024-07-18 00:51] LABS: Hemoglobin* 13.8 gm/dL (13.5-17.5)
[2024-07-18 01:04] VITALS: PULSE 62
[2024-07-18 03:00] VITALS: RESP 16
--- NOTE | 2024-07-18 05:36 | PC.NURSE ---
Pt arrived to floor around 2330. A&O pleasant and cooperative. VSS. pt denies pain. up with SBA to bathroom. pt had one episode of blood in his stool. stool was soft and the blood was a mucus consistency. pt denies light headed/dizziness. bed alarm in place.
[2024-07-18 06:24] LABS: Hematocrit 42.7 % (37.0-53.0); Mean Corpuscular HGB Conc 33 gm/dL (32-36); Mean Corpuscular Hemoglobin 28 pg (26-34); Mean Corpuscular Volume 86 fL (80-100); Platelet Count* 181 K/uL (140-440); Red Blood Count 4.98 m/uL (4.30-5.90); White Blood Count* 7.42 K/uL (4.50-11.00)
[2024-07-18 06:26] LABS: Slide Review Acceptable Review (Acceptable); Slide Review Reflex No
[2024-07-18 06:38] LABS: Chloride* 109 mmol/L (96-114); INR 1.65 (0.91-1.10); Potassium* 3.6 mmol/L (3.6-5.1); Prothrombin Time 20.6 Seconds; Sodium* 138 mmol/L (135-149)
[2024-07-18 06:41] LABS: Anion Gap 8 mEq/L (7-15); Blood Urea Nitrogen* 19 mg/dL (7-30); Carbon Dioxide* 21 mmol/L (20-32); Creatinine* 1.2 mg/dL (0.5-1.5); Est. Creatinine Clearance* 59.27; Estimated Glomerular Filt Rate 61 ml/min; Glucose* 100 mg/dL (60-115)
[2024-07-18 06:42] LABS: Calcium* 9.2 mg/dL (8.4-10.6)
[2024-07-18 07:33] VITALS: BP 153/92; PULSE 61; RESP 16; TEMP 36.5; O2SAT 99
[2024-07-18 07:35] VITALS: PULSE 60
[2024-07-18] MEDS: SODIUM CHLORIDE 0.9 % (FLUSH) 10 ML SYRINGE 5 ML IVF (08:27)
[2024-07-18] MEDS: PANTOPRAZOLE SODIUM 40 MG INJ IVP (08:27)
--- NOTE | 2024-07-18 10:35 | P.DS_ITS ---
DS: Providers Provider Date Seen: 07/18/24 Date of admission: 07/17/24 23:29 Primary care physician: Not a Local Provider Admitting Clinician: Shyanne Patel MD Attending Physician on discharge: Rianna Garcia MD DS: Diagnosis Discharge Diagnosis (1) GI bleed: Status: Acute Problem details: -recently started on warfarin, INRs 3.6-1.8 in chart review -bright red blood per rectum x3, hemoglobin 14.6, no hypotension actually mildly hypertensive, vitally stable, asymptomatic -CT unremarkable for active bleed etiology -repeat hemoglobin at 0100 and with morning draw -monitor overnight, conveyor monitor, vitals -hold warfarin, SCDs for prophylaxis -consider General Surgery consult if new or worsening symptoms, or no resolve; otherwise outpatient GI follow up (2) Atrial fibrillation: Status: Acute Problem details: -recently diagnosed -managed with propranolol and warfarin as unable to afford DOAC -INR 1.57 on admission. Recheck in am -hold warfarin, SCDs for prophylaxis -telemetry -followed by [facility], last outpatient visit 07/05/2024 (echocardiogram 03/15/2024, recent 24 hour Holter monitor, pending stress test) (3) History of CVA (cerebrovascular accident): Status: Acute Problem details: -presented to [place] ER on 03/14/2024 with left arm numbness. [facility] neurologist was contacted. NIHSS was 1 (sensory). CT without acute finding. CTA of the head and neck was unremarkable. He was recently discovered to have atrial fibrillation and started on Warfarin. INR was 1.4 on arrival. Etiology was thought to be cardioembolic in the setting of recent diagnosis of atrial fibrillation with subtherapeutic INR. He was readmitted to [facility] from 03/16 to 03/19/2024 with renal infarct. He was discharged on Warfarin . DOAC was cost prohibitive. 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 Indeterminate 2 cm hypodense lesion in segment II of the liver. Consider outpatient liver MRI for further characterization (10) Adrenal nodule: Status: Acute Problem details: -incidental finding. Indeterminate 1 cm right adrenal nodule. Recommend follow- up adrenal CT in 12 months DS: Summary Hospital Course Hospital Course: An 83 yo M pt w/ PMHx of HTN, HLD, Afib on warfarin, Hx of stroke and renal infarct who presents w/ [facility]. CT Abd/pelvis didnt show active bleeding. GIB stopped around midnight 07/18. Hb was stable around 14.8. Warfarin was held. Pt's CHADsVASc is high with Hx of stroke and renal infarction, we discussed risks and benefits of resuming warfarin v/s recurrent stroke. Pt agrees to resume warfarin on 07/21/2024 evening only if no GI bleeding noticed after DC home. He and his states that they understand that they need to stop warfarin immediately if pt develops any recurrent bleeding and come to ER immediately. f/up w/his PCP to arrange for referral for GI for colonoscopy and to evaluate his incidental liver lesion. Status at Discharge Functional status at discharge: independent ambulation Overall status at discharge: patient is back to baseline Time Spent with Patient Time attestation: Total time spent providing and/or coordinating discharge services: 50 min Time spent: Greater than 30 minutes Exam Narrative: Exam Narrative: GENERAL: Comfortable, no acute distress. HEAD AND NECK: Atraumatic, normocephalic CARDIOVASCULAR: RRR. Normal S1, S2. RESPIRATORY: Clear to auscultation B/L. Good air entry B/L. No wheezes or rhonchi. GASTROINTESTINAL: not tender to palpation. NEUROLOGY: Alert, awake, oriented X 3. Normal speech. PSYCH: Normal mood, normal affect. Const: Vital Signs, click to edit/add: Vital Signs - 24 hr 07/17/24 20:49 07/17/24 22:43 07/17/24 22:44 Temperature 98.8 F Pulse Rate 62 Pulse Rate [Pulse Oximeter] 73 Respiratory Rate 18 Blood Pressure 142/73 H Blood Pressure [Ri ght Arm] Blood Pressure [Ri ght Upper Arm] 178/98 H Pulse Oximetry 98 97 97 Oxygen Delivery Me thod Room Air 07/17/24 22:44 07/17/24 22:45 07/17/24 23:00 Temperature Pulse Rate 61 61 60 Pulse Rate [Pulse Oximeter] Respiratory Rate Blood Pressure Blood Pressure [Ri ght Arm] Blood Pressure [Ri ght Upper Arm] Pulse Oximetry 97 96 98 Oxygen Delivery Me thod 07/17/24 23:02 07/17/24 23:15 07/18/24 00:40 Temperature 98.7 F Pulse Rate 62 62 Pulse Rate [Pulse Oximeter] 61 Respiratory Rate 18 16 Blood Pressure 111/82 Blood Pressure [Ri ght Arm] 149/79 H Blood Pressure [Ri ght Upper Arm] Pulse Oximetry 97 96 96 Oxygen Delivery Me thod Room Air Room Air 07/18/24 01:04 07/18/24 03:00 07/18/24 07:33 Temperature 97.7 F Pulse Rate 62 Pulse Rate [Pulse Oximeter] 61 Respiratory Rate 16 16 Blood Pressure Blood Pressure [Ri ght Arm] 153/92 H Blood Pressure [Ri ght Upper Arm] Pulse Oximetry 99 Oxygen Delivery Me thod Room Air 07/18/24 07:35 Temperature Pulse Rate 60 Pulse Rate [Pulse Oximeter] Respiratory Rate Blood Pressure Blood Pressure [Ri ght Arm] Blood Pressure [Ri ght Upper Arm] Pulse Oximetry Oxygen Delivery Me thod DS: Data Data Completed and Pending Labs on day of discharge: Labs from last 24 hours 07/18/24 07/18/24 07/17/24 05:56 00:45 21:37 WBC 7.42 7.65 RBC 4.98 5.16 Hgb 14.0 13.8 14.6 Hct 42.7 44.6 MCV 86 86 MCH 28 28 MCHC 33 33 RDW Coeff of Parveen 14.9 Plt Count 181 193 Neut % (Auto) 72.7 H Lymph % (Auto) 16.9 L [place] % (Auto) 8.5 Eos % (Auto) 1.2 Baso % (Auto) 0.4 Neut # (Auto) 5.60 Lymph # (Auto) 1.30 [place] # (Auto) 0.70 Eos # (Auto) 0.09 Baso # (Auto) 0.03 Abs Immat Gran (auto) 0.02 Imm/Tot Granulo (auto) 0.3 Diff Slide Review Acceptable Review INR 1.65 H 1.57 H Sodium 138 139 Potassium 3.6 4.0 Chloride 109 108 Carbon Dioxide 21 22 Anion Gap 8 9 BUN 19 23 Creatinine 1.2 1.4 Estimated Creat Clear 59.27 50.81 Estimated GFR 61 50 Glucose 100 95 Lactate 0.6 Calcium 9.2 9.3 Blood Type O Negative Antibody Screen NEGATIVE Imaging CT Chest/Ab/Pelvis: Attestation: I have reviewed the pertinent imaging results. My impression: no active bleeding Radiologist's impression: TECHNIQUE: CT abdomen and pelvis acquired with 100 cc of Omnipaque 350 IV contrast. COMPARISON: None. FINDINGS: Lower chest: Bibasilar scarring versus atelectasis and paraseptal emphysema Liver: Lobulated indeterminate 2 cm hypodense lesion adjacent to the falciform ligament within segment II of the left hepatic lobe. Gallbladder and bile ducts: Unremarkable. No stones or inflammation. No biliary dilatation. Pancreas: Unremarkable. No mass or inflammation. Spleen: Unremarkable. Normal in size. No masses. Adrenal glands: Indeterminate 1.1 cm right adrenal nodule. Kidneys: Atrophic left kidney with multifocal renal cortical scarring. Parapelvic cysts bilaterally. No hydronephrosis or suspicious mass. GI tract: Diverticulosis without pericolonic inflammation. No obstruction. Normal appendix. Vasculature: Normal caliber abdominal aorta with moderate to severe atherosclerotic calcification. Mesenteric arteries are patent. Lymph nodes: No lymphadenopathy. Peritoneum/Abdominal Wall: Small bilateral fat-containing inguinal hernias, left greater than right. No free air or significant free fluid. Pelvis: Prostatomegaly. Bones: Right total hip arthroplasty. Otherwise, unremarkable for age. IMPRESSION: 1. No acute findings within the abdomen pelvis. 2. Diverticulosis without evidence for diverticulitis. 3. Indeterminate 2 cm hypodense lesion in segment II of the liver. Consider outpatient liver MRI for further characterization. 4. Indeterminate 1 cm right adrenal nodule. Recommend follow-up adrenal CT in 12 months. 5. Several chronic findings, as above. Please note that all CT scans at this facility use dose modulation, iterative reconstruction, and/or weight-based dosing when appropriate to reduce radiation dose to as low as reasonably achievable. Dictated by Santi Olea MD @ 07/17/2024 11:06:19 PM (Electronically Signed) Discharge Plan Discharge Disposition: Home, Self-Care Date of Admission: 07/17/24 23:29 Attending Provider on Discharge: Rianna Garcia Primary Care Provider: Provider,Not a Local Discharge Medications: New pantoprazole 40 mg tablet,delayed release (DR/EC) 40 mg PO DAILY Qty: 30 1RF Continued latanoprost 0.005 % drops 1 drp ophthalmic (eye) HS Rx Instructions: BOTH EYES levothyroxine 137 mcg tablet 137 mcg PO DAILY simvastatin 40 mg tablet 40 mg PO HS propranolol 20 mg tablet 10 mg PO BID topiramate 50 mg tablet 50 mg PO BID losartan 100 mg tablet 100 mg PO DAILY Held warfarin 2.5 mg tablet 2.5 mg PO MOFR@17 Hold Instructions: Resume on 07/21/24. Resume only if no GI bleeding noticed after you go home. Stop immediately if you have any bleeding. warfarin 2.5 mg tablet 3.75 mg PO SUTUWETHSA@17 Hold Instructions: Resume on 07/21/24. Resume only if no GI bleeding noticed after you go home. Stop immediately if you have any bleeding. Discharge Orders: Discharge Order (Routine); Ordered 07/18/24 Ordered By: Rianna Garcia Patient Education: Pantoprazole (By mouth), Gastrointestinal Bleeding (IP) Additional Instructions: -Resume warfarin on 07/21/2024 evening only if no GI bleeding noticed after you go home. Stop immediately if you have any bleeding and come to ER immediately. -you need to follow-up with your primary care physician to discuss anticoagulation with warfarin, and 2 discuss the cause of this bleeding, in addition to the liver and adrenal lesions that were found incidentally on the CT scan. -you need referral to a GI specialist for a colonoscopy as soon as possible. Activity Level: Activity as Tolerated Discharge Diet: Heart Healthy (2 gm sodium, low fat) Diet Detail: Soft diet Follow Up Appointments: Provider,Not a Local [Primary Care Provider] - 07/25/24 10:15 am (Dr. Dale Shaikh [place] [address] [place] [address]) Forms: [facility] Info Instructions
[2024-07-18 11:08] VITALS: BP 129/77; PULSE 66; RESP 16; TEMP 36.7; O2SAT 96
[2024-07-18 12:22] LABS: Hematocrit 44.8 % (37.0-53.0); Hemoglobin* 14.8 gm/dL (13.5-17.5); Mean Corpuscular HGB Conc 33 gm/dL (32-36); Mean Corpuscular Hemoglobin 28 pg (26-34); Mean Corpuscular Volume 86 fL (80-100); Platelet Count* 196 K/uL (140-440); Red Blood Count 5.21 m/uL (4.30-5.90); White Blood Count* 8.22 K/uL (4.50-11.00)
[2024-07-18 12:30] LABS: Slide Review Reflex No
--- NOTE | 2024-07-18 13:17 | PC.NURSE ---
End of shift: Patient had 2 loose BMs today. No blood noted. Ambulating independently in room. Tolerating a regular diet. Denies nausea. Voiding without difficulty. Vital signs within normal limits. Denies pain. Tele NSR. Will DC this afternoon [facility] with .
== END 2024-07-18 13:30 | disposition home or self-care (01) ==
LOC: ED 23:19 → MEDSURG 23:30
PROVIDERS: Physician Assistant; Student in an Organized Health Care Education/Training Program; Admitting Provider Family Medicine; Emergency Provider Emergency Medicine; Visit Provider Family Medicine
DX: K92.2 Gastrointestinal hemorrhage, unspecified (principal); K76.9 Liver disease, unspecified; I48.91 Unspecified atrial fibrillation; I10 Essential (primary) hypertension; N28.0 Ischemia and infarction of kidney; G25.0 Essential tremor; E78.5 Hyperlipidemia, unspecified; E03.9 Hypothyroidism, unspecified; C61 Malignant neoplasm of prostate; M51.369 Other intervertebral disc degeneration, lumbar region without mention of lumbar back pain or lower extremity pain; E27.9 Disorder of adrenal gland, unspecified; R91.1 Solitary pulmonary nodule; M54.16 Radiculopathy, lumbar region; H40.9 Unspecified glaucoma; E87.5 Hyperkalemia; Z79.01 Long term (current) use of anticoagulants; Z86.73 Personal history of transient ischemic attack (TIA), and cerebral infarction without residual deficits; Z87.891 Personal history of nicotine dependence; Z86.39 Personal history of other endocrine, nutritional and metabolic disease; Z86.0100 Personal history of colon polyps, unspecified
CPT/HCPCS: 36415; 74177; 80048; 83605; 85018; 85025; 85027; 85610; 86850; 86900; 86901; 94761; 96374; 99283; 99285; G0378; A9270; J2470; Q9967